=== PATIENT | female | born 1955 | race Caucasian/White ===

== ENCOUNTER 2024-10-03 12:23 | Day surgery (SDC) | payer MEDICARE, BC ==
[2024-10-03] MEDS ORDERED: LIDOCAINE HCL 2% 100 MG/5 ML IJ ONE (12:24)
[2024-10-03] MEDS ORDERED: LIDOCAINE HCL 1% 50 MG/5 ML VL IJ ONE (12:24)
--- NOTE | 2024-10-03 17:14 | XRAY ---
Indication: Bilateral L4-S1 MBB. Intraoperative fluoroscopy provided for 43 seconds. 2 digital spot images submitted for interpretation demonstrates posterior needle tips projecting over expected left and right L4-S1 nerve roots. Correlate with intraoperative findings/report.
--- NOTE | 2024-10-03 17:33 | XRAY ---
43 seconds of fluoroscopy was used in surgery for a bilateral L4-S1 MBB.
== END 2024-10-03 15:35 | disposition home or self-care (01) ==
LOC: SDC-PAIN 12:23
PROVIDERS: ATTEND Psychiatry & Neurology Pain Medicine
DX: M47.816 Spondylosis without myelopathy or radiculopathy, lumbar region (principal); R73.03 Prediabetes
CPT/HCPCS: 64493; 64494; 72020; 77002; 82947

== ENCOUNTER 2024-11-07 14:35 | Day surgery (SDC) | payer MEDICARE, BC ==
[2024-11-07] MEDS ORDERED: BUPIVACAINE 0.5% VIAL IJ ONE (14:36)
[2024-11-07] MEDS ORDERED: LIDOCAINE HCL 1% AMPUL 5 ML IJ ONE (14:36)
[2024-11-07] MEDS ORDERED: Depo-Medrol 40 MG/ML IM ONE (14:36)
--- NOTE | 2024-11-07 16:48 | XRAY ---
Indication: Bilateral L4-S1 MBB. Intraoperative fluoroscopy provided for 34 seconds. 2 digital spot images submitted for interpretation demonstrates posterior needle tips projecting over expected left and right L4-S1 nerve roots. Correlate with intraoperative findings/report.
--- NOTE | 2024-11-08 09:52 | XRAY ---
34 seconds of fluoroscopy was used in surgery for a bilateral L4-S1 MBB.
== END 2024-11-07 16:45 | disposition home or self-care (01) ==
LOC: SDC-PAIN 14:35
PROVIDERS: ATTEND Psychiatry & Neurology Pain Medicine
DX: M47.816 Spondylosis without myelopathy or radiculopathy, lumbar region (principal); R73.03 Prediabetes
CPT/HCPCS: 64493; 64494; 72020; 77002; 82947